=== PATIENT | female | born 1945 | race Caucasian/White ===

== ENCOUNTER 2022-04-20 10:01 | Day surgery (SDC) | payer MEDICARE, OTHER ==
[2022-04-20] VITALS (7 sets, daily range): BP systolic 125–148; BP diastolic 41–93
[~2022-04-20] VITALS: Ht 157.5 cm; Wt 101.5 kg
[~2022-04-20 10:01] MED LIST: APIX5TAB3 PO; IPRA3AMP9 IH; LISI10TA27 PO; METO50TA16 PO; PANT40SU2 PO; ROSU40TA PO
[2022-04-20] MEDS ORDERED: LORazepam 0.5 MG tablet PO PRN (10:25)
[2022-04-20] MEDS ORDERED: normal saline 1000ml 1,000 ML IV SCH (10:25)
[2022-04-20] MEDS ORDERED: OXYGEN NASALCANN (10:35)
[2022-04-20] MEDS ORDERED: UMEC1DIS INH (10:35)
[2022-04-20] MEDS ORDERED: FURO40TA4 PO (10:35)
[2022-04-20 11:32] LABS: BASOPHILS % (AUTO) 0.6 % (0-1); EOSINOPHILS # (AUTO) 0.1 X10'3 (0-0.9); EOSINOPHILS % (AUTO) 2.2 % (0-6); HEMOGLOBIN 12.7 g/dl (12.0-16.0); LYMPHOCYTES # (AUTO) 1.6 X10'3 (1.1-4.8); LYMPHOCYTES % (AUTO) 25.5 % (21-51); MEAN CORPUSCULAR HEMOGLOBIN 30.4 PG (27.0-31.0); MEAN CORPUSCULAR HGB CONC 33.5 g/dL (33.0-36.5); MEAN PLATELET VOLUME 8.4 FL (7.4-10.4); MONOCYTES # (AUTO) 0.4 X10'3 (0-0.9); MONOCYTES % (AUTO) 6.8 % (2-12); NEUTROPHILS # (AUTO) 4.1 X10'3 (1.8-7.7); NEUTROPHILS % (AUTO) 64.9 % (42-75); PLATELET COUNT 224 X10'3 (140-440); RED BLOOD COUNT 4.17 X10'6 (4.20-5.60); RED CELL DISTRIBUTION WIDTH 14.4 % (11.5-14.5); WHITE BLOOD COUNT 6.3 X10'3 (4.5-11.0)
[2022-04-20 11:41] LABS: ALBUMIN 3.6 G/DL (3.4-5.0); ANION GAP 9 (8-16); BLOOD UREA NITROGEN 12 MG/DL (7-18); BUN/CREATININE RATIO 15.6 (6.6-38.0); CALCIUM 9.2 MG/DL (8.5-10.1); CHLORIDE 102 MMOL/L (99-107); CREATININE 0.77 MG/DL (0.40-0.90); GLUCOSE 163 MG/DL (70-104); POTASSIUM 3.5 MMOL/L (3.5-5.1); SODIUM 143 MMOL/L (135-145); TOTAL CARBON DIOXIDE 31.8 MMOL/L (24-32); eGFR 72 ML/MIN
[2022-04-20 11:49] LABS: APTT 25 SECONDS (22-32)
[2022-04-20] MEDS ORDERED: LIDOcaine 1% 30ml preserv. free vial ONE (12:26)
[2022-04-20] MEDS ORDERED: iohexol 350 MG/ML 50ML vial IV ONE (12:26)
[2022-04-20] MEDS ORDERED: midazolam 1 mg/ML 2ml injection ONE (12:32)
[2022-04-20] MEDS ORDERED: fentaNYL/PF 50MCG/1 ML 2ML syringe ONE (12:32)
--- NOTE | 2022-04-20 12:45 | NUR ---
Nano BEDOLLA from [employer] analyst at bedside. Pt denies pain at IV site, IV flushed with 10ml NS. No s/s of infiltration. Pt taken to procedure.
--- NOTE | 2022-04-20 13:36 | NUR ---
1230 requested PICC nurse for IV start. Waiting for response.
[2022-04-20] MEDS ORDERED: aspirin 325mg tablet ONE (13:58)
[2022-04-20] MEDS ORDERED: clopidogrel 75mg tablet ONE (13:58)
--- NOTE | 2022-04-20 14:37 | NUR ---
1416 Pt back from procedure. IV fluids running as ordered. Pt denies pain. VS stable as charted. Pt has water to drink, in hand. Daughter is at bedside.
[2022-04-20] MEDS ORDERED: HYDROcodone/acetaminophen 10/325mg tab PO PRN (14:50)
[2022-04-20] MEDS ORDERED: HYDROcodone/acetaminophen 5mg/325mg tablet PO PRN (14:50)
[2022-04-20] MEDS ORDERED: APIX5TAB3 PO (15:01)
[2022-04-20] MEDS ORDERED: ALB0.5UD IH (15:01)
[2022-04-20] MEDS ORDERED: SOTA80TA73 PO (15:01)
[2022-04-20 16:05] LABS: ISTAT Hct MIX 36 %PCV (35-45); ISTAT O2 SATURATION MIX VENOUS 65 % (60-80); ISTAT SOURCE VEN
--- NOTE | 2022-04-20 16:38 | NUR ---
[id number] Contacted to verify home medications. states, "no new aspirin, no new Plavix" pt to continue eliquis as prescribed. Discussed all medications on medication reconciliation. Pt verbalized understanding. Pt will start Eliquis / in the AM.
== END 2022-04-20 16:20 | disposition home or self-care (01) ==
LOC: SSTAY O 10:01
PROVIDERS: ATTEND Student in an Organized Health Care Education/Training Program
DX: I50.30 Unspecified diastolic (congestive) heart failure (principal); I48.91 Unspecified atrial fibrillation; I10 Essential (primary) hypertension; I27.20 Pulmonary hypertension, unspecified; Z79.899 Other long term (current) drug therapy; Z98.890 Other specified postprocedural states
CPT/HCPCS: 33289; 36415; 80048; 82803; 82948; 85014; 85025; 85610; 85730; 93005; 99152; 99153; C1751; C1769; C1894; C2624; J1644; J2250; J3010; J3490; J7030; Q9967; A4615; A6258; A6402; A6449

== ENCOUNTER 2022-10-06 15:02 | Outpatient (CLI) | payer MEDICARE, OTHER ==
[~2022-10-06 15:02] MED LIST changes: +ALB0.5UD IH; +FURO40TA4 PO; -IPRA3AMP9 IH; -METO50TA16 PO; +OXYGEN NASALCANN; -PANT40SU2 PO; +SOTA80TA73 PO; +UMEC1DIS INH
== END 2022-10-06 23:59 | disposition home or self-care (01) ==
LOC: RT 15:02
PROVIDERS: ATTEND Internal Medicine Interventional Cardiology
DX: J98.11 Atelectasis (principal); R94.2 Abnormal results of pulmonary function studies; R06.02 Shortness of breath; J44.9 Chronic obstructive pulmonary disease, unspecified; I50.9 Heart failure, unspecified
CPT/HCPCS: 71046; 94010; 94727; 94729; 94760

== ENCOUNTER 2023-06-12 13:58 | Emergency (ER) | payer MEDICARE, OTHER ==
[~2023-06-12] VITALS: Ht 157.5 cm; Wt 97.0 kg
[2023-06-12 14:07] VITALS: BP 110/44; PULSE 96; RESP 18; TEMP 98.7; O2SAT 97
[2023-06-12 14:32] LABS: BASOPHILS % (AUTO) 0.4 % (0-1); EOSINOPHILS % (AUTO) 0 % (0-6); HEMATOCRIT 38.6 % (35.0-45.0); HEMOGLOBIN 12.5 g/dl (12.0-16.0); LYMPHOCYTES # (AUTO) 1.1 X10'3 (1.1-4.8); LYMPHOCYTES % (AUTO) 10.5 % (21-51); MEAN CORPUSCULAR HEMOGLOBIN 29.6 PG (27.0-31.0); MEAN CORPUSCULAR HGB CONC 32.5 g/dL (33.0-36.5); MEAN CORPUSCULAR VOLUME 91.2 FL (78-98); MEAN PLATELET VOLUME 8.7 FL (7.4-10.4); MONOCYTES # (AUTO) 0.7 X10'3 (0-0.9); MONOCYTES % (AUTO) 6.2 % (2-12); NEUTROPHILS # (AUTO) 8.9 X10'3 (1.8-7.7); NEUTROPHILS % (AUTO) 82.9 % (42-75); PLATELET COUNT 199 X10'3 (140-440); RED BLOOD COUNT 4.23 X10'6 (4.20-5.60); RED CELL DISTRIBUTION WIDTH 14.8 % (11.5-14.5); WHITE BLOOD COUNT 10.7 X10'3 (4.5-11.0)
[2023-06-12 14:50] LABS: ALANINE AMINOTRANSFERASE 19 U/L (12-78); ALBUMIN/GLOBULIN RATIO 0.7 (1.1-1.5); ALKALINE PHOSPHATASE 71 IU/L (46-116); ANION GAP 10 (8-16); ASPARTATE AMINO TRANSFERASE 17 U/L (10-37); BILIRUBIN,TOTAL 0.9 MG/DL (0.1-1.0); BLOOD UREA NITROGEN 14 MG/DL (7-18); BUN/CREATININE RATIO 11.2 (10.0-20.0); CALCIUM 8.7 MG/DL (8.5-10.1); CHLORIDE 99 MMOL/L (99-107); CREATININE 1.25 MG/DL (0.40-0.90); GLUCOSE 196 MG/DL (70-104); POTASSIUM 3.1 MMOL/L (3.5-5.1); SODIUM 138 MMOL/L (135-145); TOTAL CARBON DIOXIDE 29.2 MMOL/L (24-32); TOTAL PROTEIN 7.1 G/DL (6.4-8.2); eCRCL 28 ML/MIN; eGFR 41 ML/MIN
[2023-06-12 14:59] LABS: PRO BRAIN NATRIURETIC PEPTIDE 1858 PG/ML (0-450)
== END 2023-06-12 17:53 | disposition left against medical advice (07) ==
LOC: ER 13:59
DX: R06.02 Shortness of breath (principal); R50.9 Fever, unspecified
CPT/HCPCS: 36415; 71045; 80053; 83880; 84484; 85025; 93005; 99281